=== PATIENT | male | born 1935 | race Caucasian/White ===

== ENCOUNTER 2020-02-07 14:25 | Inpatient (IN) | payer MEDICARE ==
[~2020-02-07] VITALS: Ht 177.8 cm; Wt 85.6 kg
[~2020-02-07 14:25] MED LIST: ASPIR-LOX AD325 MG PO; ASPIRIN 81M81 MG/TA2 PO; CEPHALEXIN500 M1 PO; COREG 6.256.25 MG/TA PO; IMIPRAMINE25 MG PO; LIPITOR 40MG TA40 MG PO; LISINOPRIL AND1 TAB PO; LISINOPRIL/HCTZ1 TAB PO; MONODOX100 PO; MULTIPLE VITAMI1 TA4 PO; NORVASC 10MG10 MG PO; OMNICEF 300MG300 MG PO; PROSCAR PO; RELAFEN500 MG PO; TERAZOSIN HCL PO; TERAZOSIN HYDRO10 MG PO; TOPROL XL 50MG50 MG PO; VITAMIN E1000 U/CAP PO; ZOCOR40 MG PO; ZOCOR80 MG PO; imipramine PO
[2020-02-07 15:36] LABS: BASO % 0.5 % (0.0-2.0); EOS # 0.1 (0.0-0.7); EOS % 2.1 % (0-4.0); GRAN # 3.1 (1.4-6.5); GRAN % 48.7 % (42.2-75.2); HEMOGLOBIN 15.7 g/dl (13.5-18.0); LYMPH # 2.3 (1.2-3.4); LYMPH % 36.7 % (20.0-51.0); MEAN CELL VOLUME 93 fl (80.0-100.0); MEAN CORPUSCULAR HEMOGLOBIN 32 pg (27.0-31.0); MEAN CORPUSCULAR HGB CONC 34 g/dl (33.0-37.0); MEAN PLATELET VOLUME 8.7 fl (7.4-10.4); MONO # 0.7 (0.1-0.6); MONO % 11.7 % (1.7-9.3); PLATELET COUNT 232 K/mm3 (130-400); RED BLOOD COUNT 4.97 M/mm3 (4.20-5.60); REDCELL DISTRIBUTION WIDTH-CV 13.5 % (11.5-14.5)
[2020-02-07 15:38] LABS: PROTHROMBIN TIME 11.3 SECONDS (9.7-12.8)
[2020-02-07 15:42] LABS: ALBUMIN 4.3 gm/dL (3.5-5.0); BILIRUBIN,TOTAL 0.8 mg/dL (0.0-1.0); CALCIUM 9.2 mg/dL (8.4-10.2); CREATININE, serum 0.73 (0.66-1.25); POTASSIUM 4.1 mmol/L (3.4-5.0); TOTAL PROTEIN 7.6 gm/dL (6.4-8.2)
[2020-02-07 15:52] LABS: COLLECTION METHOD CLEAN CATCH
[2020-02-07 16:01] LABS: PH 6 (5-8); SQUAMOUS EPITHELIAL None Seen /hpf; URINE APPEARANCE Clear; URINE BACTERIA None Seen /hpf; URINE BILIRUBIN Negative (NEGATIVE); URINE BLOOD Negative (NEGATIVE); URINE COLOR Colorless; URINE GLUCOSE Negative (NEGATIVE); URINE KETONE Negative (NEGATIVE); URINE LEUKOCYTE ESTERASE Negative (NEGATIVE); URINE NITRATE Negative (NEGATIVE); URINE PROTEIN(semi-quant) Negative (NEGATIVE); URINE RBC 0-2 /hpf; URINE UROBILINOGEN Negative (NEGATIVE)
--- NOTE | 2020-02-07 16:32 | NUR ---
Cloth Shearing Supervisor consulted for the patient. The patient's life partner and caregiver recently. The patient has an open APS case. Shanita from APS contacted this SW regarding the patient. Due to the the caregiver passing away the patient is not safe alone at home. RAZIA visited the patient and brought him to the ED due to APS worker stating the patient is not safe at home alone. The patient to be admitted obs status. SW contacted the patient's son, Abraham and daughter, Jaycob, #[phone], # [phone], respectively. The patient has a third child, Anna Hudson. This SW does not have her contact information. Abraham reports he wants to do what is best for the patient and discussed the options or placement or home to Abraham's house with home health and/or private duty services. The patient may not want SNF placement due to the patient's mother passing away at a prison. A psyciatric consult was ordered. TIP collaborated the above information with the PA and medical SW.
[2020-02-07 18:08] VITALS: BP 154/81; PULSE 86; TEMP 97.9
--- NOTE | 2020-02-07 18:46 | NUR ---
Patient alert, repititve with questions and answers, he appears unsettled and unable to follow through with conversation. Spoke with Dr Lewis, the Psychiatrist about hospitalist consult to her. patient was brought up from ED this afternoon. Patient evaluated, RN decide to place patient on high fall risk, this decision was made because patient seem mildly impulsive and disoriented.
[2020-02-07 19:07] VITALS: BP 130/68; PULSE 69; TEMP 97.7
--- NOTE | 2020-02-07 19:49 | NUR ---
RECEIVED CHANGE OF SHIFT REPORT FROM DAY SHIFT NURSE. PATIENT UP IN ROOM DESPITE REPEATED INSTRUCTION TO BE UP ONLY WITH STAFF ASSISTANCE, BED ALARM ON.
--- NOTE | 2020-02-07 19:53 | NUR ---
PATIENT NOT ORIENTED WHEN ASKED, UNABLE TO ANSWER ADMISSION QUESTIONS RELIABLY AT THIS TIME. NO OUTWARD SIGNS OF TREMORS OBSERVED, DENIES ANXIOUSNESS FEELING, DENIES NAUSEA C/O AT THIS TIME. DENIES C/O PAIN TO ANY PART OF HIS BODY AT THIS TIME.
[2020-02-07 21:37] VITALS: BP 137/73; PULSE 78; TEMP 98.1
[2020-02-07 23:27] VITALS: BP 114/70; PULSE 66; TEMP 97.7
--- NOTE | 2020-02-07 23:59 | NUR ---
PATIENT CONTINUES TO GET OUT OF BED WITHOUT CALLING STAFF, PATIENT CONTINUES TO BE CONFUSED AND RESTLESS, DENIES HALLUCINATIONS BUT STILL INSISTANT TO LEAVING AND REQUIRES REPEATED INSTRUCTIONS TO STAY IN BED DUE TO NIGHT TIME SCHEDULE, ENCOURAGING PATIENT TO SLEEP. SPEECH CLEAR BUT NOT ORIENTED. DENIES CHEST PAIN/SHORTNESS OF BREATH.
[2020-02-08] VITALS (12 sets, daily range): BP systolic 121–163; BP diastolic 64–89; PULSE 62–78; TEMP 97.7–98.4
--- NOTE | 2020-02-08 01:49 | NUR ---
Report received from nurse Frank at this time. Patient is currently resting in bed. ENVIRONMENTAL PROPERTY ASSESSOR sitter is stationed outside of patient's door to facilitate safety. Bed alarm on. Will continue to monitor.
--- NOTE | 2020-02-08 01:55 | NUR ---
REPORT GIVEN TO [place].
--- NOTE | 2020-02-08 06:15 | NUR ---
Patient has been calm and restful from 0200 to 0430 this morning. At this time, he is beginning to grow more restless and anxious. Vital signs are WNL. He is able to be reoriented and follows commands. Bed alarm on and call light in reach.
[2020-02-08 06:35] LABS: BASO % 0.6 % (0.0-2.0); EOS # 0.1 (0.0-0.7); GRAN # 3.2 (1.4-6.5); GRAN % 59.6 % (42.2-75.2); HEMOGLOBIN 14.8 g/dl (13.5-18.0); LYMPH # 1.4 (1.2-3.4); LYMPH % 25.5 % (20.0-51.0); MEAN CELL VOLUME 93 fl (80.0-100.0); MEAN CORPUSCULAR HEMOGLOBIN 32 pg (27.0-31.0); MEAN CORPUSCULAR HGB CONC 34 g/dl (33.0-37.0); MEAN PLATELET VOLUME 8.8 fl (7.4-10.4); MONO # 0.7 (0.1-0.6); MONO % 12.1 % (1.7-9.3); PLATELET COUNT 238 K/mm3 (130-400); RED BLOOD COUNT 4.64 M/mm3 (4.20-5.60); REDCELL DISTRIBUTION WIDTH-CV 13.7 % (11.5-14.5)
[2020-02-08 06:49] LABS: CREATININE, serum 0.83 (0.66-1.25); POTASSIUM 3.8 mmol/L (3.4-5.0)
--- NOTE | 2020-02-08 08:00 | NUR ---
Patient resting in bed at this time. Patient pulled out his INT, catheter intact. Patient is alert but confused, is plesant and easily redirectable, but does not appear to retain information and immediately returns to behaviors. Sitter is outside of room, direct visualization of patient. bed alarm on.
--- NOTE | 2020-02-08 14:47 | NUR ---
Dr. Henderson, psychiatrist, evaluated the patient and states that he does not have the capacity to make his own decisions with regards to his health care and living arrangements. PT/OT worked with the patient and recommend SNF. TIP contacted the patient's son, Abraham, to update and to discuss discharge plan. TIP discussed SNF vs the patient staying with him and family and home health/private duty services. Abraham reports that he was unaware of how severe the patient's dementia was. He states that he kept in touch with the patient, but is not very close with him. Abraham states that he needs to talk to the rest of his family, before making any decisions. TIP attempted to contact the RN Certified Shorthand Reporter and Dr. Zafar's office to inquire if they have any DPOA-HC paperwork. TIP left them a message. TIP to continue to follow.
--- NOTE | 2020-02-08 15:55 | NUR ---
Anita jointer machine operator, at Dr. Zafar's office returned SW's phone call. Anita reports that they do not have a DPOA-HC on file for the patient.
--- NOTE | 2020-02-08 17:31 | NUR ---
Patient currently resting in bed. Patient grew increasingly restless during the shift, and less cooperative with staff. Patient removed second IV, third placed in RAC in one attempt, patient cooperative with placement. Bed alarm on, sitter can directly visualize patient from doorway.
--- NOTE | 2020-02-08 19:45 | NUR ---
Very drowsy--was just given 2 mg of Ativan per detox protocol about an hour ago- will open eyes- when asked if pain pt states no, goes right back to sleep- VSS, does wiggle toes and do hand grasps also then back to sleep-- would not take night meds at this time, Tele on, INT to right AC
[2020-02-09] VITALS (13 sets, daily range): BP systolic 120–158; BP diastolic 67–93; PULSE 60–91; TEMP 97.2–98.4
--- NOTE | 2020-02-09 03:00 | NUR ---
Pt has been sleeping all shift- does not even wake much for vitals and goes back to sleep-- no urine tonight so did wake patient, confused but cooperative-did stand at the bedside with 2 assists and voided 750cc clear yellow urine per urinal. Back to bed with warm blanket and back to sleep. VSS.
--- NOTE | 2020-02-09 05:21 | NUR ---
Quiet night- has been sleeping all night except for about 10-15 minutes around 0300-- on detox protocol , no Ativan given based on scores tonight. VSS, Bed alarm on-close to nsg station.
[2020-02-09 06:38] LABS: ALBUMIN 3.8 gm/dL (3.5-5.0); BILIRUBIN,TOTAL 0.8 mg/dL (0.0-1.0); CALCIUM 9.3 mg/dL (8.4-10.2); CREATININE, serum 0.75 (0.66-1.25); POTASSIUM 3.5 mmol/L (3.4-5.0); TOTAL PROTEIN 6.9 gm/dL (6.4-8.2)
[2020-02-09 06:40] LABS: BASO % 0.4 % (0.0-2.0); EOS # 0.1 (0.0-0.7); EOS % 1.6 % (0-4.0); GRAN # 5.2 (1.4-6.5); GRAN % 68.8 % (42.2-75.2); HEMATOCRIT 44.3 % (42.0-52.0); HEMOGLOBIN 15.2 g/dl (13.5-18.0); LYMPH # 1.3 (1.2-3.4); LYMPH % 17.4 % (20.0-51.0); MEAN CELL VOLUME 92 fl (80.0-100.0); MEAN CORPUSCULAR HEMOGLOBIN 31 pg (27.0-31.0); MEAN CORPUSCULAR HGB CONC 34 g/dl (33.0-37.0); MEAN PLATELET VOLUME 8.8 fl (7.4-10.4); MONO # 0.9 (0.1-0.6); MONO % 11.5 % (1.7-9.3); PLATELET COUNT 233 K/mm3 (130-400); RED BLOOD COUNT 4.84 M/mm3 (4.20-5.60); REDCELL DISTRIBUTION WIDTH-CV 13.5 % (11.5-14.5)
--- NOTE | 2020-02-09 08:17 | NUR ---
Pt awake upon entry, some underlying aggitation, medications given. No C/O pain mihir this time. Shift assessments complete, left Pt in bed, bed in lowest position, alarm on.
--- NOTE | 2020-02-09 09:57 | NUR ---
Build And Deployment Engineer faxed referrals to [facility], [facility], [facility], [facility], [facility], [place], [facility], [facility], and [place].
--- NOTE | 2020-02-09 13:10 | NUR ---
Pt very agitated, atavan administered.
--- NOTE | 2020-02-09 15:45 | NUR ---
TIP attempted to contact the patient's son, Abraham, multiple times. SW left him voicemails. TIP then contacted the patient's daughter, Jaycob. Jaycob reports that Abraham is going to be the person to talk to about d/c plan. She states that Abraham is working and hard to track down. She will call/text him and have him call SW. TIP informed Jaycob that if family is willing to become the patient's guardian, then they will be responsible to get an deputy county attorney and file for guardianship and conservator. Jaycob reports that she does not want to do this. TIP inquired about her sister, Anna, and getting her phone number. Jaycob reports that she is not going to give TIP Castillo's phone number. She states that Anna's children are not well right now. Jaycob reports that Abraham is going to be the person to talk to. She states that she is unsure if Abraham will even want to be the patient's guardian and get an deputy county attorney.
--- NOTE | 2020-02-09 16:07 | NUR ---
Robe, at [facility], reports that they are good to follow the patient. They would need DPOA-HC/Guardianship first. They are a tentative yes.
--- NOTE | 2020-02-09 18:34 | NUR ---
Pt restless in the room, has been aggitated and not oriented during the day, currently Pt napping in the room. IV site pulled by Pt early this afternoon, new site established in left wrist area, mittens applied to prevent Pt from removing the new IV site, mitten covers site. VS have been stable.
--- NOTE | 2020-02-09 20:00 | NUR ---
Assessment complete. Patient is slightly drowsy and confused; He speaks irrelevantly, as if talking to a family member in the room. He moves all extremities, can follow commands, and also knows his birthday. No tremors are noted but he is unable to sit still. No skin issues are noted. Patient wears mitts to facilitate safety. Bed alarm on and BISCUIT PACKER sitter is being utilized. Will continue to monitor.
[2020-02-10] VITALS (11 sets, daily range): BP systolic 134–161; BP diastolic 76–86; PULSE 71–96; TEMP 97.6–98.7
--- NOTE | 2020-02-10 06:14 | NUR ---
Patient is currently resting soundly in bed. He has received 0.5 mg Ativan 3 times during this shift, as he has been scoring 4-5 on CWA scale. Patient in no acute distress at this time. Bed alarm on. Will continue to monitor.
--- NOTE | 2020-02-10 09:48 | NUR ---
Pt sleeping upon entry, easily awakened, some underlying confusion evident, Pt not aggitated at this time. Shift assessments complete.
--- NOTE | 2020-02-10 19:02 | NUR ---
Received report from Brian. Seen patient asleep on bed. Sitter was on outside the room. Bed alarm on. Frankos on his both hands. Will continue to monitor.
--- NOTE | 2020-02-10 20:50 | NUR ---
Patient is asleep. He would respond a little bit if we would call his name but will not open his eyes. Repositioned him as his other leg was dangling on the bed. Patient opened his eyes and then informed him that I will give his night medicines. He said he does not want it. Tried offering water and he did drink. Tried giving one pill first and he was able take it. Tried giving another pill which is his Lipitor but he did not try to swallow it. Removed the pill to prevent patient from aspiration. Will try again later. He is not combative and went back to sleep again.
--- NOTE | 2020-02-10 21:55 | NUR ---
Vital signs taken by the sitter. Patient's eyes were close but he was talking. Offered him if I can give his Lipitor but he said no. Offered him some water and he said he's okay for now. Boost up patient. He went back to sleep after. No Ativan given.
[2020-02-11] VITALS (12 sets, daily range): BP systolic 110–165; BP diastolic 64–86; PULSE 66–84; TEMP 97.4–99.1
--- NOTE | 2020-02-11 03:43 | NUR ---
Patient had incontinent void. Changed patient's diaper. Repositioned patient in bed. He woke up a little bit when we need to turn him while changing. He went back to sleep after.
--- NOTE | 2020-02-11 05:54 | NUR ---
Patient had been asleep most of the night. Ativan given once only this morning. He was awake and wanted to urinate. Helped patient stand with 3 assist. He was able to urinate 500mL. Patient went back to sleep. Sitter still on the outside of the room. Bed alarm on. Still with mittens on both hands.
[2020-02-11 06:13] LABS: HEMATOCRIT 43.9 % (42.0-52.0); HEMOGLOBIN 15.5 g/dl (13.5-18.0); MEAN CELL VOLUME 90 fl (80.0-100.0); MEAN CORPUSCULAR HEMOGLOBIN 32 pg (27.0-31.0); MEAN CORPUSCULAR HGB CONC 35 g/dl (33.0-37.0); MEAN PLATELET VOLUME 8.9 fl (7.4-10.4); PLATELET COUNT 228 K/mm3 (130-400); RED BLOOD COUNT 4.87 M/mm3 (4.20-5.60)
[2020-02-11 06:29] LABS: CALCIUM 9.3 mg/dL (8.4-10.2); CREATININE, serum 0.58 (0.66-1.25); POTASSIUM 3.4 mmol/L (3.4-5.0)
--- NOTE | 2020-02-11 07:40 | NUR ---
PT. SLEEPS WITH DEEP RESPIRATIONS ALTERNATING WITH SHALLOW, RESTLESS MOMENTARILYALTERNATES WITH SLEEP.WHEN AWAKE REQUESTS MITTS REMOVED THEN ASLEEP;SLIGHT THIRST BUT LETHARGIC.NO PAIN.
--- NOTE | 2020-02-11 08:24 | NUR ---
Bedisde shift report received. pt appears asleep and snoring. moving legs on bed. 1:1 sitter present. bed alarm on. on RA. no s/s distress.
--- NOTE | 2020-02-11 09:30 | NUR ---
899-PT. RESTLESS AND BUMPING LEGS AGAIST LOWER BED RAILS;SEIZURE PADS FOR SAFETY FROM INJURY;PT. C/O PAIN WHEN TURNING OR MOVING RUE;PT. SAYS BACK PAIN THEN TO SLEEP ONCE REPOSITIONED TO R SIDE. 929- PT. AWAKENS AND SAYS HE DOES NOT FEEL GOOD;LITTLE HUNGRY,THRISTY; P.T. TO SEE PT. BUT NO THERAPY PT. TOO SLEEPY;LESS RESTLESS SITTING UP IN BED.FALLS TO SLEEP.
--- NOTE | 2020-02-11 10:27 | NUR ---
MORNING meds given. pt sleepy but answered questions appropriately. oriented to person and in hospital but thinks in [place]. not oriented to time. currently eating breakfast with assisatnce from FLOW WORKER. took meds cruched in pudding due to drowsyness. bed alarm on
--- NOTE | 2020-02-11 11:20 | NUR ---
1000- FED AND FLUIDS TAKEN MAX FOR ADMITTING SUPERVISOR; THEN AGREEABLE TO HAVE BATH IN BED;MITTS RELEASED AND REAPPLIED; REPOSITIONED TO L SIDE;XRAYS OF R SHOULDER DONE AND REPOSITIONED. 1125- S.T. TO WORK W/PT.
--- NOTE | 2020-02-11 11:51 | NUR ---
attempted to call listed next of kin for consent for lumbar pucture for pt and no answer on phone. call back number left for family
--- NOTE | 2020-02-11 12:21 | NUR ---
1200- AWAKE AND WANTING MITTS OFF-RN APPROVED AND PT. REPEATEDLY WANTING "PANTS TO LEAVE";RELESTLESS BUT MANAGEABLE IN BED.
--- NOTE | 2020-02-11 13:27 | NUR ---
1230-pt. grabbed IV quickly; RN informed; pt. asking for a couple of beers repeatedly and wanting his shoes and clothes to go home. Did eat full liquids and no lower teeth to chew general foods; drinks w/o choking w/straw. Restless and trying to get out of bed but pain in RUE and back with movement; Wanting to pay anyone to take him home for beer. Denies in hospital and c/o R abd. pain for short time;wanting OOB to void and does not void w/urinal placement. 1330- O.T. assisted pt. to BS to dangle w/mod assist but pt. to weak to sit up and repositioned in bed.R.N. notified of pt. needing pain med and very restless.1345- Pt. trying to get OOB and falls back into bed,rests for short time.1350- recalled for pt. not able to relax,very restless. Wheezing respirations.1400-Intermittent restlessness.
--- NOTE | 2020-02-11 14:06 | NUR ---
On 02/09 Icer Machine Operator attempted to contacted the patient's son, Abraham regarding guardianship for the patient, left message. This day SW attempted to contact the patient's son, Abraham and left message informing him that there is a legal matter pending for the patient and he needed to contact the patient as soon as possible. SW contacted the patient's daughterHaja regarding the above information, left message.
--- NOTE | 2020-02-11 14:10 | NUR ---
1410-notified RN of pts' temp 99.1 A.
--- NOTE | 2020-02-11 14:13 | NUR ---
FAMILY Abraham and Haja called in regards to consent for LP again this shift with call proceeding to voicemail all times. No call back
--- NOTE | 2020-02-11 14:45 | NUR ---
1420-RN at -restart IV and for Tylenol for pts' pain; not able to move RUE higher than chest level; Pt. fed pudding and sips of water; says "No more" 1445- resting after mitts on and repositioned semi sitting.
--- NOTE | 2020-02-11 15:35 | NUR ---
IV infiltrate treated per RN request w/WMP reduced swelling;Pt restless at times;tries to bite off mitts-tactile cues to prevent... asleep intermittently.
--- NOTE | 2020-02-11 16:13 | NUR ---
ATTEMPTED TO CALL FAMILY FOR LP CONSENT AGAIN BUT NO CALL BACK.
--- NOTE | 2020-02-11 16:40 | NUR ---
REPORT GIVEN TO ONCOMING NURSE KEN. MONTGOMERY AT BEDSIDE.
--- NOTE | 2020-02-11 16:42 | NUR ---
Printed Forms Proofreader faxed udpates to [facility] and to [place].
--- NOTE | 2020-02-11 18:12 | NUR ---
1700- Pt. is restless and wanting OOB. Relaxes for short periods of time; wanting OOB; Oncoming R.N. explained to that pt. pulled out IV and last one infiltrated. Pt. thirsty and drinks fluids well/no choking. 1730- pt. eats little better but says full w/40% of meal. Very restless after supper fed max assist. Bilateral mitts intact. rn informed of pt. urge to void but not able to from a.m. but at 1825 voided nora 160ml max to place urinal.
--- NOTE | 2020-02-11 19:25 | NUR ---
Received report from Brian. Seen patient drowsy in bed. He was moving his legs occasionally. Patient has no IV access as the sitter said that patient pulled it awhile ago. Inserted an IV site on his left forearm G22. Infused NS at 75ml/hr. Night meds given early as patient is slightly awake and wants to drink some water.
--- NOTE | 2020-02-11 22:00 | NUR ---
Patient complains of headache and pain on his right shoulder. Tylenol given.
--- NOTE | 2020-02-11 23:43 | NUR ---
Patient starts to get agitated. He wants to remove his mittens and get out of bed. Would re-orient patient and lead him back to lie down in bed. Ativan given.
[2020-02-12] VITALS (10 sets, daily range): BP systolic 116–154; BP diastolic 66–80; PULSE 65–96; TEMP 97.4–98.4
--- NOTE | 2020-02-12 04:15 | NUR ---
Patient is awake and starting to become restless. He also complains of neck pain. Ativan and Tylenol given. Repositioned patient.
[2020-02-12 06:07] LABS: CALCIUM 8.9 mg/dL (8.4-10.2); CREATININE, serum 0.61 (0.66-1.25); MAGNESIUM 1.9 mg/dL (1.6-2.3); POTASSIUM 3.5 mmol/L (3.4-5.0)
--- NOTE | 2020-02-12 06:23 | NUR ---
Patient currently asleep. Was able to give 2 doses of Ativan throughout the shift. Bed alarm on.
--- NOTE | 2020-02-12 07:38 | NUR ---
Bedside shift report recevied. PT resting in bed. moving legs towards off bed. eyes closed. repositioned. confused conversation with eyes closed. bed alarm on and sitter at bedside.
--- NOTE | 2020-02-12 09:18 | NUR ---
Morning meds given crushed in pudding. pt slightly drowsy and oriented to person only. ate breakfast with 1 assist. fidgets. confused. IVF infusing as ordered. had an episode on incontinence and BM per sitter. VSS. bed alarm on
--- NOTE | 2020-02-12 13:59 | NUR ---
TIP faxed updates from 02/11/2020-02/12/[address] [facility], and Tabith[facility] as directed.
--- NOTE | 2020-02-12 14:03 | NUR ---
PT VERY RESTLESS and anxious. would not stay still enough for vitals. wanting to walk out door and out of the [place]. unable to re-orient. bed alarm on.
--- NOTE | 2020-02-12 20:00 | NUR ---
Report received, assumed care for community development planner. Assessment complete. VS stable. A&O to self-very confused conversation but pleasent. NS@75mls/hr to left forearm IV-no s/s of infiltration noted. Denies pain/nausea/shortness of breath. Currently scoring 0 on withdrawl scale. HS meds given crushed in apple sauce. Tolerated well. Plan of care discussed for this shift to include HS meds/calling for needs. Sitter at bedside/bed alarm on. Will monitor.
--- NOTE | 2020-02-12 22:25 | NUR ---
Originally had scored 2 at 2200 detox evaluation. Currently is very confused and hallucinating that there are people in his room talking to him. Blood pressure is elevated and anxiety is high. Rescored on detox protocol 5 for blood pressure, anxiety and insomnia. Will continue to monitor.
[2020-02-13] VITALS (12 sets, daily range): BP systolic 116–162; BP diastolic 60–91; PULSE 63–88; TEMP 97.3–98.9
--- NOTE | 2020-02-13 05:00 | NUR ---
Very restless and anxious. Trying to climb out of bed stating there are strange men in the room trying to steal his belongings. Detox protocol rescored-scoring 5 due to elevated blood pressure/anxiety/hallucinations. Ativan 0.5mg given per dr order. Sitter at bedside/bed alarm on. Will monitor.
--- NOTE | 2020-02-13 06:18 | NUR ---
Remained very confused this shift but mostly pleasent. Received two doses of Ativan 0.5mg per dr order for detox scores of 5 due to vitals, anxiety, hallucinations and pulse. Denied pain/nausea/shortness of breath. Has been incontinent of urine several times this shift. Denies needs. Call light in reach/bed alarm on/sitter at bedside. Will monitor.
--- NOTE | 2020-02-13 07:23 | NUR ---
Bedside shift report received. pt fidgeting in bed with eyes closed. sitter at bedside. incontinent of urine and changed shortly after. became aggressive during jean care but was able to be redirected. now resting in bed. bed alarm on.
[2020-02-13 08:04] LABS: CREATININE, serum 0.65 (0.66-1.25); POTASSIUM 3.6 mmol/L (3.4-5.0)
--- NOTE | 2020-02-13 09:41 | NUR ---
MORNING MEDS given. pt awake but drowsy. oriented to person only. thinks he is at home. fidgets with equipment and IVF thus mitts on. incontinent and changed, able to follow simple commands. bed alarm on
--- NOTE | 2020-02-13 12:13 | NUR ---
PT WAS GIVEN A BED BATH by sitter and sat up in chair for a while. confused but compliant with care. worked with PT but apparently refused to stand with them citing rt shoulder and back pain. fluids offered and accepted. awaiting lunch
--- NOTE | 2020-02-13 16:36 | NUR ---
PT OFF MITTS from 1100 to after lunch 1300. He was able to sit up and feed himself lunch. remains confused and oriented to person only. mild to moderate anxiety. multiple incontinent episodes with some urinal use. SOFIA Tabby ambulated pt to bathrom with 1/CGA, GB and walker and back to chair. back to bed for nap after lunch. pain controlled per FLACC scale
--- NOTE | 2020-02-13 20:00 | NUR ---
Assessment complete. Patient is alert and partially oriented; He is able to state his name, birthday, and the city he is in but does not know the current year or president. He has no complaints of pain. He is pleasant at this time with no signs of agitation; BP 139/77 and HR 81. Bed alarm on and CORPORATE ANALYST sitter in use. NS running at 75 into left forearm IV. Will continue to monitor.
[2020-02-14] VITALS (9 sets, daily range): BP systolic 122–151; BP diastolic 72–85; PULSE 72–80; TEMP 97.9–98.5
--- NOTE | 2020-02-14 05:25 | NUR ---
Patient currently resting in bed. He moves very often but is calm and pleasant. He has been incontinent of urine twice during the shift and has used the urinal once. He complains of pain in his right shoulder when it is moved. Fluids infusing into right wrist IV. Bed alarm on.
--- NOTE | 2020-02-14 09:08 | NUR ---
Assessment completed, patient is alert but remains disoriented, vital signs stable, CIWA scores range from 3-6 but overall is improved, denies pain and does not appear to be in any acute pain or discomfort, heart RRR/distal pulses are palpable, lungs CTA/ no resp.difficulty, replacing potassium per protocol, patient is eating and drinking with encouragement, IVF continue, patient up with assistance and is still unsteady on his feet, bed alarm set, will continue to monitor closely while Case managmeent/ SW work on discharge planning
--- NOTE | 2020-02-14 16:36 | NUR ---
Carpentry Instructor contacted patient's children, Jaycob and Abraham and left urgent messages with no response. SW collaborated with Jacinda Otero, Risk Management who also attempted contact with Jaycob and Abraham. Jacinda contacted Daryl Andrade, Tow Boat Captain about pursuing emergency guardianship as patient's three children are unable to be contacted and will not return calls/messages. Daryl requested Guardianship Questionnaire be completed and returned to Kristofer Rose, Tow Boat Captain. TIP completed Guardianship Questionnaire and scanned copy to Daryl Curry and Kristofer Rose, with Jacinda copied. TIP also provided Report and Exam to Hospitalist to be completed. TIP faxed updates to [place] [facility]. TIP will continue to follow.
--- NOTE | 2020-02-14 18:46 | NUR ---
Bedside shift report received from NATHANAEL Linares. Patient is currently resting in bed with fluids infusing to right wrist IV.
--- NOTE | 2020-02-14 20:00 | NUR ---
Assessment complete. Patient is alert but not oriented; He is constantly moving. He has no complaints of pain, except his right shoulder when turning. He has been incontinent of urine and a complete bed change/partial bed bath is performed. At beginning of shift, patient pulled out his right wrist IV; New IV site is initiated in right a/c. Bed alarm on and patient is being closely monitored.
[2020-02-15] VITALS (10 sets, daily range): BP systolic 99–146; BP diastolic 58–87; PULSE 54–90; TEMP 97.5–98.9
--- NOTE | 2020-02-15 03:12 | NUR ---
At this time, patient's abdomen and scrotal area appear distended. Fluids are currently infusing at 75 ml/hr. Patient has had adequate urine output throughout the night but a bladder scan is performed, resulting with >749 ml. 5 minutes after bladder scan, "patient drenched" (per CRANE OPERATOR CAB report) his brief; In addition, he is assisted to the urinal and voids 250 ml. Post void bladder scan is performed and results >755 ml. ESTEPHANIE Waters is notified and personally comes to floor to assess patient. She orders the insertion of a hart; Sterile technique is utilized during insertion of hart; A straight cath catheter is needed to first insert into urethra, as patient has adhesions in urethra which block the insertion of a 16 sri lankan hart catheter. The straight catheter drains 400 ml of urine and now a 16 sri lankan hart is able to be inserted; A total of 1050 mls medium-yellow, clear urine is drained. Abdomen and scrotal area still appear edematous but are less so after urine is removed. Per order, IV fluids are discontinued at this time. Patient received a dose of 0.5 mg IV Ativan 30 minutes prior to hart inseriton, due to CIWA protocal, and tolerated procedure well. He did grimace when SUPPLY ASSISTANT palpated the right side of his abdomen but is too drowsy and disoriented to state a pain level. Will continue to monitor.
[2020-02-15 04:06] LABS: COLLECTION METHOD CLEAN CATCH
[2020-02-15 04:12] LABS: MUCOUS Present /lpf; PH 8 (5-8); SQUAMOUS EPITHELIAL None Seen /hpf; URINE APPEARANCE Clear; URINE BACTERIA None Seen /hpf; URINE BILIRUBIN Negative (NEGATIVE); URINE BLOOD Negative (NEGATIVE); URINE COLOR Straw; URINE GLUCOSE Negative (NEGATIVE); URINE KETONE Negative (NEGATIVE); URINE LEUKOCYTE ESTERASE Negative (NEGATIVE); URINE NITRATE Negative (NEGATIVE); URINE PROTEIN(semi-quant) Negative (NEGATIVE); URINE RBC None Seen /hpf; URINE UROBILINOGEN Negative (NEGATIVE)
--- NOTE | 2020-02-15 14:44 | NUR ---
Cad Engineer returned Report and Examination, which was completed by Dr. Dos Santos, to Kristofer Rose, Seedling Sorter.
--- NOTE | 2020-02-15 15:30 | NUR ---
Cementer Hand spoke with Kristofer Rose, Manager Business Planning who advised he has made contact with patient's daughter, Haja. Kristofer advised Haja would not disclose contact information for patient's other daughter, Anna or patient's two adult siblings. Kristofer advised that they did confirm that patient owns the trailer he lived in.
--- NOTE | 2020-02-15 20:00 | NUR ---
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 Assessment complete. Alert but conversation is very confused. Denies pain/nausea/shortness of breath. VS stable. Very anxious at this time-trying to pull out hart cath with mits on, climbing over bedrails, trying to hit staff. Ativan given per dr order. HS meds given. Denies needs/complaints. Call light in reach/bed alarm on. Will monitor.
[2020-02-16] VITALS (10 sets, daily range): BP systolic 97–128; BP diastolic 52–77; PULSE 72–88; TEMP 97.6–98.3
--- NOTE | 2020-02-16 | NUR ---
Resting eyes closed. No s/s of pain/discomfort noted. Call light in reach/bed alarm on. Will monitor.
--- NOTE | 2020-02-16 05:11 | NUR ---
Rested well this shift. Was anxious/agitated at the beginning of the shift. Denied nausea/shortness of breath/pain. Alert but very confused. Received one dose of IV ativan per dr order with good results. VS remained stable. Aguilera cath with light pink urine. INT to right forearm flushes without difficulty. Call light in reach/bed alarm on. Will monitor.
--- NOTE | 2020-02-16 09:16 | NUR ---
PATIENT ASSESSMENT COMPLETED. HE IS SITTING UP IN THE BED EATING BREAKFAST. MITTS HAVE BEEN REMOVED FOR THIS. BED ALARM REMAINS ON.
--- NOTE | 2020-02-16 12:40 | NUR ---
PATIENT IS VERY AGGITATED IN THE BED. I HAVE NEW ORDERS FROM TO GIVEN HALDOL 1MG IVP NOW.
--- NOTE | 2020-02-16 14:03 | NUR ---
PATIENT AMBULATES IN THE HALLWAY GREATER THAN 500 FEET. HE IS BACK TO BED AND IS NOW ACTING DROWSY. BED ALARM ON.
--- NOTE | 2020-02-16 14:10 | NUR ---
PATIENT NOW RESTING IN BED. CALM
--- NOTE | 2020-02-16 15:08 | NUR ---
PATIENT IS BECOMING AGGITATED IN BED. PRN SEREQUIL GIVEN AT THIS TIME PO
--- NOTE | 2020-02-16 16:12 | NUR ---
Kristofer Rose, Manager Process Excellence emailed draft of Temporary Guardianship documents to Rn Wound for review. TIP reviewed and responsed to email. Kristofre advised it will be filed. TIP faxed clinical updates to [facility]. TIP spoke with Masha at [facility] who advised it looks like they can clinically accept but would need Guardianship established before officially accepting.
--- NOTE | 2020-02-16 18:05 | NUR ---
PATIENT PULLED OUT HIS WEINSTEIN CATHETER. HE REPORTS THAT IT DIDN'T HURT BULB IS INTACT WHEN I EVALUATE IT. I HAVE NOTIFIED DR. WEI OF THIS NEW ORDERS RECEIVED
--- NOTE | 2020-02-16 19:15 | NUR ---
Very agitated at this time-yelling/trying to climb out of bed/swatting at staff and picking at IV site. Haldol given per dr scott. Will monitor.
--- NOTE | 2020-02-16 23:07 | NUR ---
Patient laying in bed upon enter the room. Patient appears confused and very agitated. Moves all extremities and trying to get out of bed. PRN Haldol given at 19:13 pm. Scheduled meds given per order. Patient took the medicine without difficulty. Right wrist IV site has no s/s of complication. Flushed with NS without difficulty. Call light within reach. Will continue to monitor.
[2020-02-17 03:58] VITALS: BP 103/59; PULSE 72; TEMP 98.1
--- NOTE | 2020-02-17 04:30 | NUR ---
Patient hasn't been urinating over the night. Bladder scan done and urine residual was 520ml. Called Dr. Dos Santos and received order to place hart catheter. Hart catheter placed by Nancie Arana with urine return of 500ml in the bag. Hart catheter draining clear yellow urine. Patient was agitated after the procedure and attemped to pull out hart catheter. PRN Haldol given at 04:04 am per APR. Will continue to monitor.
[2020-02-17 08:17] VITALS: BP 145/77; PULSE 81; TEMP 97.5
--- NOTE | 2020-02-17 10:00 | NUR ---
Patient laying in bed, nursing staff in the room reorienting the patient and informing that he has a hart catheter that he can urinate in. Patient is A&Ox2. Patient is becoming agitated when not allowed to get up and move around. IV CDI, russ bandage covering. VSS. Denies pain and discomfort. Bed alarm on, door open and call light within reach. Fall precautions in place.
[2020-02-17 12:00] VITALS: BP 124/65; PULSE 69; TEMP 97.9
[2020-02-17 14:12] VITALS: BP 124/65; PULSE 69; TEMP 97.9
[2020-02-17 16:00] VITALS: BP 139/80; PULSE 88; TEMP 98.1
--- NOTE | 2020-02-17 16:19 | NUR ---
Pantomimist contacted Kristofer Rose, [employer] Ax Developer who advised that Guardianship was filed yesterday, but he would not have a physical copy of the document until Friday. TIP and RNConcha looked in patient's wallet to search for bank information. TIP obtained a contact list in patient's wallet, including a phone number for his bank and provided this to Kristofer Rose, employment law attorney. Patient pulled his hart catheter and is wearing mitts. TIP faxed referrals to [facility] placements including [facility], [facility], [facility], [place] [facility], and [facility]. TIP received a phone call from [facility] who declined referral as they cannot accept patient's with alcohol detox as they do not have addiction counselors on staff. TIP contacted [facility] and was advised they would not review referral until Friday. TIP attempted to follow up with [facility] but could not reach anyone through the main phone number. TIP contacted Robe at [facility] who advised that if patient has required a sitter or if patient is requiring mitts, they cannot accept. Robe advised they would also need to have Guardianship documents before the would consider an admit. TIP spoke with Masha at [facility] who advised before they can accept they would need Gurdianship documents and would need more information about patient's financial situation. TIP will continue to follow.
--- NOTE | 2020-02-17 16:30 | NUR ---
Paper Bag Inspector also faxed referral to [facility].
--- NOTE | 2020-02-17 18:10 | NUR ---
Patient has been agitated throughout the shift and nursing staff in the patients room most of the shift reorienting the patient. Patient has tried to take his hart out, biting mitts and was combative with staff. Doctor notified. Patient is alert and confused. VSS. IV CDI, russ bandage covering. Hart clear yellow. Nursing staff assisting with meals. Patient has tried to have a BM several times throughout the shift. Call light within reach. Bed alarm on and door open
[2020-02-17 19:32] VITALS: BP 117/66; PULSE 80; TEMP 98.2
--- NOTE | 2020-02-17 22:47 | NUR ---
Patient alert and oriented to person only. Patient appears very agitated. Trying to get out of bed and also trying to pull out his Aguilera catheter. PRN Ativan given at 20:16 pm. Scheduled meds given per APR at this time. Patient took medications without difficulty. Right wrist IV site has no s/s of complications. Flushed with NS without difficulty. Aguilera catheter patent and in place, draining clear yellow urine. Call light within reach. Fall precaution maintained.
[2020-02-18 00:26] VITALS: BP 114/67; PULSE 77; TEMP 98.1
[2020-02-18 03:25] VITALS: BP 119/65; PULSE 73; TEMP 97.9
--- NOTE | 2020-02-18 04:51 | NUR ---
Patient slept well after had PRN Ativan at start of shift. Patient woke up around 03:30 am. Patient starts to get agitate and combatitive. Trying to pull out his hart, yelling at staff, and kicking staff with his legs. PRN Ativan given at 04:47 am for agitation. Call light within reach. Will continue to monitor.
[2020-02-18 08:00] VITALS: BP 106/60; PULSE 79; TEMP 97.3
[2020-02-18 08:29] LABS: BASO % 0.4 % (0.0-2.0); EOS # 0.2 (0.0-0.7); EOS % 2.8 % (0-4.0); GRAN # 5.5 (1.4-6.5); GRAN % 65.3 % (42.2-75.2); HEMATOCRIT 44.7 % (42.0-52.0); HEMOGLOBIN 15.3 g/dl (13.5-18.0); LYMPH # 1.7 (1.2-3.4); LYMPH % 19.9 % (20.0-51.0); MEAN CELL VOLUME 92 fl (80.0-100.0); MEAN CORPUSCULAR HEMOGLOBIN 32 pg (27.0-31.0); MEAN CORPUSCULAR HGB CONC 34 g/dl (33.0-37.0); MEAN PLATELET VOLUME 8.8 fl (7.4-10.4); MONO # 0.9 (0.1-0.6); MONO % 11.2 % (1.7-9.3); PLATELET COUNT 446 K/mm3 (130-400); RED BLOOD COUNT 4.85 M/mm3 (4.20-5.60); REDCELL DISTRIBUTION WIDTH-CV 12.6 % (11.5-14.5)
[2020-02-18 08:38] LABS: ALBUMIN 4.1 gm/dL (3.5-5.0); BILIRUBIN,TOTAL 0.7 mg/dL (0.0-1.0); CALCIUM 9.7 mg/dL (8.4-10.2); CREATININE, serum 0.86 (0.66-1.25); POTASSIUM 4.3 mmol/L (3.4-5.0); TOTAL PROTEIN 7.7 gm/dL (6.4-8.2)
[2020-02-18 16:22] VITALS: BP 117/56; PULSE 79; TEMP 98
[2020-02-18 20:08] VITALS: BP 116/62; PULSE 74; TEMP 98.1
--- NOTE | 2020-02-18 23:19 | NUR ---
Patient laying in bed upon enter the room. Patient appears slightly confused. Oriented to person only. Patient denies any pain or discomfort. Breathing even and unlabored. Aguilera catheter patent and in place, draing clear yellow urine. Right wrist IV has no s/s of complications. Scheduled medications crushed and mixed in applesauce. Patient took medications without difficulty. Call light within reach. Fall precaution maintained.
[2020-02-19 00:51] VITALS: BP 106/66; PULSE 62; TEMP 98.3
[2020-02-19 04:32] VITALS: BP 108/55; PULSE 65; TEMP 98.1
--- NOTE | 2020-02-19 06:01 | NUR ---
Patient slept through the night. No acute distress or agitation noted. Call light within reach.
--- NOTE | 2020-02-19 07:23 | NUR ---
Patient laying in bed, was trying to get out of bed. A&Ox2 and confused. Nurse reoriented the patient. VSS. IV CDI, russ bandage covering. Aguilera, clear yellow urine. Denies pain and reports some discomfort from laying in bed. Call light within reach, mitts on. Bed alarm on, door open
[2020-02-19 08:12] VITALS: BP 121/69; PULSE 67; TEMP 97.9
[2020-02-19 12:18] VITALS: BP 111/81; PULSE 78; TEMP 97.7
[2020-02-19 16:00] VITALS: BP 107/59; PULSE 80; TEMP 97.8
--- NOTE | 2020-02-19 17:28 | NUR ---
Patient resting in bed. Was agitated in the beginning of shift and nursing staff frequently reorienting the patient. Patient sat up in the recliner and tolerated well. Patient assisted with eating and repositioning in bed. Aguilera to dependent drainage, clear yellow. Call light within reach. Bed alarm on and door left open
--- NOTE | 2020-02-19 18:30 | NUR ---
Bedside shift report received from Concha. Patient is currently in bed, drowsy and restless. Aguilera is draining dark yellow urine. Patient is not being impulsive at this time. Bed alarm on.
[2020-02-19 18:52] VITALS: BP 124/71; PULSE 85; TEMP 98.2
--- NOTE | 2020-02-19 20:00 | NUR ---
Assessment complete. Patient is resting in bed but arouses easily to voice. He is oriented to self but not time, place or situation. No edema is present and patient has no complaints of pain. Aguilera is draining clear, dark yellow urine. PO meds are administered crushed with applesauce and patient is encourage to drink regular ice water, which he tolerates well. Patient is being closely monitored with bed alarm set.
[2020-02-20 00:15] VITALS: BP 117/70; PULSE 78; TEMP 100.5
[2020-02-20 05:05] VITALS: BP 119/71; PULSE 79; TEMP 99.5
--- NOTE | 2020-02-20 08:00 | NUR ---
Patient laying in bed, A&Ox2 and confused. VSS IV CDI. Mitts on hands. Aguilera dependent drainage. Reporting pain in back when being repositioned in bed. Nursing staff reorienting patient as needed. Call light within reach. Bed alarm on and door left open
[2020-02-20 08:18] VITALS: BP 139/76; PULSE 92; TEMP 98
[2020-02-20 08:24] LABS: BASO % 0.3 % (0.0-2.0); EOS # 0.1 (0.0-0.7); EOS % 0.6 % (0-4.0); GRAN # 6.8 (1.4-6.5); GRAN % 69.5 % (42.2-75.2); HEMATOCRIT 43.4 % (42.0-52.0); HEMOGLOBIN 14.9 g/dl (13.5-18.0); LYMPH # 1.5 (1.2-3.4); MEAN CELL VOLUME 91 fl (80.0-100.0); MEAN CORPUSCULAR HEMOGLOBIN 31 pg (27.0-31.0); MEAN CORPUSCULAR HGB CONC 34 g/dl (33.0-37.0); MEAN PLATELET VOLUME 8.5 fl (7.4-10.4); MONO # 1.4 (0.1-0.6); MONO % 14.3 % (1.7-9.3); PLATELET COUNT 513 K/mm3 (130-400); RED BLOOD COUNT 4.79 M/mm3 (4.20-5.60); REDCELL DISTRIBUTION WIDTH-CV 12.4 % (11.5-14.5)
[2020-02-20 08:32] LABS: CALCIUM 9.5 mg/dL (8.4-10.2); CREATININE, serum 0.91 (0.66-1.25); POTASSIUM 4.2 mmol/L (3.4-5.0)
[2020-02-20 11:22] LABS: COLLECTION METHOD CLEAN CATCH
[2020-02-20 11:42] LABS: MUCOUS Present /lpf; PH 5 (5-8); SQUAMOUS EPITHELIAL None Seen /hpf; URINE APPEARANCE Cloudy; URINE BACTERIA Rare /hpf; URINE BILIRUBIN Negative (NEGATIVE); URINE BLOOD 3+ (NEGATIVE); URINE COLOR Amber; URINE GLUCOSE Negative (NEGATIVE); URINE KETONE Negative (NEGATIVE); URINE LEUKOCYTE ESTERASE 2+ (NEGATIVE); URINE NITRATE Negative (NEGATIVE); URINE PROTEIN(semi-quant) 2+ (NEGATIVE); URINE RBC >50 /hpf
[2020-02-20 12:00] VITALS: BP 137/76; PULSE 81; TEMP 99.6
--- NOTE | 2020-02-20 12:00 | NUR ---
Aguilera removed, pericare provided before and after removal. Catheter tip intact, 12ml water removed from balloon, patient tolerated well. Brief placed on patient. Patient repositioned for comfort. Call light within reach
--- NOTE | 2020-02-20 16:00 | NUR ---
Bladder scanned the patient and 150ml in bladder. Patient brief still dry. Patient reposited for comfort. Call light within reach
[2020-02-20 16:33] VITALS: BP 130/71; PULSE 86; TEMP 99.1
--- NOTE | 2020-02-20 17:42 | NUR ---
Patient had an uneventful day. Spent most of the shift resting in bed. Aguilera removed, patient has not voided since removal and bladder scan showed 150ml urine in bladder. Patient has had compliants of pain in lower back and legs, lidocain patch on left lower back. Patients HOB lowered to help with the pain in back. Mitts on hands. Patient repositioned for comfort and assisted with meals. Call light within reach. Bed alarm on and door open
--- NOTE | 2020-02-20 18:17 | NUR ---
Bladder scanned the patient and 270ml urine in bladder. EASTON Chauhan notified and instructed to rescan in 1 hr and then update.
[2020-02-20 20:00] VITALS: BP 110/66; PULSE 81; TEMP 99.6
--- NOTE | 2020-02-20 20:00 | NUR ---
Assessment complete. Patient is resting in bed and arouses to speech. He is slightly drowsy and confused. Patient is encouraged to void in urinal and refuses; Bladder scan is completed and results 236 mls. HR is normal and regular, lungs are clear/diminished. Abdomen is distended and soft, especially on the right side. Mons pubis area appears distended as well. No extremity edema is noted. Patient is tolerating breathing RA well and satting 94%. Patient complains of back pain and has low grade fever - Tylenol administered. Will continue to monitor closely. Bed alarm on.
--- NOTE | 2020-02-21 00:08 | NUR ---
Patient is encouraged to void in urinal at this time. Patient does not void; Second bladder scan of the shift is performed and results 309 mls. EASTON Chauhan notified; Additional nursing order states to bladder scan Q6H and straight cath if result is greater than 450 mls. She also ordered a urology consult to be called in the am. Will continue to monitor.
[2020-02-21 04:00] VITALS: BP 104/57; PULSE 72; TEMP 97.8
--- NOTE | 2020-02-21 06:00 | NUR ---
Bladder scan completed at this time. Result is 399 ml. Does not require straight cath per doctor's order. Will continue to monitor.
[2020-02-21 07:28] LABS: HEMATOCRIT 42.2 % (42.0-52.0); HEMOGLOBIN 14.3 g/dl (13.5-18.0); MEAN CELL VOLUME 93 fl (80.0-100.0); MEAN CORPUSCULAR HEMOGLOBIN 31 pg (27.0-31.0); MEAN CORPUSCULAR HGB CONC 34 g/dl (33.0-37.0); MEAN PLATELET VOLUME 8.8 fl (7.4-10.4); PLATELET COUNT 512 K/mm3 (130-400); RED BLOOD COUNT 4.55 M/mm3 (4.20-5.60); REDCELL DISTRIBUTION WIDTH-CV 12.6 % (11.5-14.5)
[2020-02-21 07:39] LABS: CALCIUM 9.4 mg/dL (8.4-10.2); CREATININE, serum 1.23 (0.66-1.25); POTASSIUM 3.9 mmol/L (3.4-5.0)
[2020-02-21 08:36] VITALS: BP 103/58; PULSE 77; TEMP 97.3
[2020-02-21 08:38] LABS: BAND 8 % (0-10); LYMPHOCYTE 16 % (20.0-51.0); NEUTROPHILS 66 % (42.0-75.2)
[2020-02-21 08:39] LABS: PLATELET ESTIMATE INCREASED (NORMAL)
[2020-02-21 12:30] VITALS: BP 105/60; PULSE 79; TEMP 97.1
[2020-02-21 16:27] VITALS: BP 118/65; PULSE 81; TEMP 98.4
--- NOTE | 2020-02-21 16:52 | NUR ---
Gambreler faxed referral to [facility]. TIP contacted Enedelia at [facility] who advised they could likely take once Guardianship is established. Enedelia advised they are pretty full this week but will have discharges. TIP contacted Page at [facility] who advised they are currently full. TIP contacted [facility] [place] and was advised they currently have a wait list but should have discharges this week. TIP attempted to contact [facility] but could not reach any staff members and could not leave a message. TIP left a message for Giselle at [facility]. TIP received an email from Kristofer Rose mergers and acquisitions attorney and there was a clerical issue with what was filed last week. Patient should have temporary guardianship filed for today. TIP will continue to follow.
--- NOTE | 2020-02-21 20:00 | NUR ---
Assessment complete. Patient is resting in bed and arouses to voice. He is only oriented to self. He complains of right lower back/hip pain when he is repositioned in bed. No edema is present. Indwelling hart is draining dark yellow urine. Fluids infusing at 75 ml/hr into right forearm IV. Patient is breathing RA and is tolerating well. Lung sounds are clear; HR is irregular with normal rate. Bed alarm is set.
[2020-02-21 20:17] VITALS: BP 133/56; PULSE 76; TEMP 98.4
[2020-02-22 00:32] VITALS: BP 136/72; PULSE 55; TEMP 98.3
[2020-02-22 04:28] VITALS: BP 128/62; PULSE 75; TEMP 98.6
--- NOTE | 2020-02-22 05:08 | NUR ---
Patient has slept throughout the majority of the night. He has remained very confused and is attempting to get out of bed this morning to urinate, despite being oriented to his catheter. Fluids infusing at 75 ml/hr. Bed alarm set. Will continue to monitor.
[2020-02-22 10:38] VITALS: BP 123/66; PULSE 72; TEMP 97.9
--- NOTE | 2020-02-22 16:57 | NUR ---
Radiologic Technology Teacher collaborated with Kristofer Rose, Solar Lab Technician who advised Guardianship has been filed and is still pending. TIP spoke Page at [facility] and faxed updates. TIP also spoke with Giselle at [facility] who advised she would review updates and have their physician review. TIP spoke with Sharlene at [facility] who advised they would look at accepting once guardianship is established. Each facility would need Guardianship prior to accepting. TPI will continue to follow.
[2020-02-22 17:50] VITALS: BP 137/73; PULSE 82; TEMP 98.2
--- NOTE | 2020-02-22 18:06 | NUR ---
Patients mitts put back on, patient took off hart stat lock 2 times. Nursing staff replaced and put pants on patient. Alert and confused. VSS. IV CDI, fluids infusing. Patient has complaints of back pain, but pain not as bad as the previous day. Lidocaine patch mid lower back. Patient repositioned for comfort. Call light within reach. Bed alarm on and door left open
--- NOTE | 2020-02-22 20:00 | NUR ---
Assessment complete. Patient is alert but is not oriented; He is pleasantly confused. Heart sounds are normal/regular, lungs clear, and all bowel sounds are audible. No edema is present and patient does not appear to be in pain unless he is rolled on his side. NS is infusing into right forearm IV. Indwelling catheter is draining dark yellow urine. Patient swallows PO meds, some with regular water, and some crushed in applesauce. Bed alarm on and will continue to closely monitor.
[2020-02-22 21:20] VITALS: BP 131/58; PULSE 82; TEMP 97.5
[2020-02-23 01:05] VITALS: BP 122/64; PULSE 74; TEMP 97.8
[2020-02-23 05:27] VITALS: BP 126/62; PULSE 80; TEMP 97.9
[2020-02-23 06:57] LABS: BASO % 0.3 % (0.0-2.0); EOS # 0.1 (0.0-0.7); EOS % 1.3 % (0-4.0); GRAN % 69.3 % (42.2-75.2); HEMATOCRIT 40.7 % (42.0-52.0); HEMOGLOBIN 13.8 g/dl (13.5-18.0); LYMPH # 1.5 (1.2-3.4); LYMPH % 17.3 % (20.0-51.0); MEAN CELL VOLUME 92 fl (80.0-100.0); MEAN CORPUSCULAR HEMOGLOBIN 31 pg (27.0-31.0); MEAN CORPUSCULAR HGB CONC 34 g/dl (33.0-37.0); MEAN PLATELET VOLUME 8.9 fl (7.4-10.4); MONO % 11.3 % (1.7-9.3); PLATELET COUNT 474 K/mm3 (130-400); RED BLOOD COUNT 4.42 M/mm3 (4.20-5.60); REDCELL DISTRIBUTION WIDTH-CV 12.4 % (11.5-14.5)
--- NOTE | 2020-02-23 07:00 | NUR ---
Pt is complaining of back pain with movement. He is still attempting to get out of bed, he has mitts on at this time. Will remove them to allow him to eat, and reassess his need for them. Assessment completed. Bed alarm on, call light at bedside. No further concerns at this time.
[2020-02-23 07:09] LABS: CALCIUM 8.9 mg/dL (8.4-10.2); CREATININE, serum 0.72 (0.66-1.25); POTASSIUM 3.8 mmol/L (3.4-5.0)
[2020-02-23 08:19] VITALS: BP 121/63; PULSE 69; TEMP 97.7
[2020-02-23 11:58] VITALS: BP 126/71; PULSE 106; TEMP 98.1
[2020-02-23 16:00] VITALS: BP 124/64; PULSE 73; TEMP 97.5
--- NOTE | 2020-02-23 16:05 | NUR ---
Obstetrical Anesthesiologist received copy of Temporary Guardianship paperwork from Kristofer Rose. TIP faxed this information to [facility], [facility], and [facility]. TIP contacted Sharlene at [facility] and left a message. TIP spoke with Page at [facility] who requested most recent urine. TIP faxed. TIP also spoke with Giselle at [facility] who requested updated COVID PCR. Giselle reports she has been in contact with patient's Guardian, Kristofer Rose. TIP spoke with EASTON Stroud about ordering COVID PCR and provided update on discharge planning. TIP corresponded with Jeff Carreno, patient's city attorney to set up Zoom meeting for tomorrow at 1030 for Guardianship hearing. SW to provide patient copy of Guardianship doc before Zoom meeting. TIP collaborated with NATHANAEL Healy Scrap Metal Burner who advised tablet will be available tomorrow morning. TIP will continue to follow.
--- NOTE | 2020-02-23 18:34 | NUR ---
Pt used plastic knife to cut his hart catheter tubing. Replaced hart bag.
--- NOTE | 2020-02-23 19:18 | NUR ---
Report given to NATHANAEL Mcdonald.
[2020-02-23 20:30] VITALS: BP 128/66; PULSE 76; TEMP 97.2
[2020-02-24] VITALS (7 sets, daily range): BP systolic 107–143; BP diastolic 64–96; PULSE 64–90; TEMP 97.4–97.7
--- NOTE | 2020-02-24 03:41 | NUR ---
Patient in bed, no impulsive activity. patient continue to manipulate hart catheter with have covered in mittens. Patient resting in bed at this time.
--- NOTE | 2020-02-24 07:26 | NUR ---
REPORT GIVEN TO NATHANAEL RUFFIN
--- NOTE | 2020-02-24 10:05 | NUR ---
Pt awake upon entry, has C/o pain in his lower back. lidocaine patch applied for relief. Shift assessment complete, left Pt call light in reach.
--- NOTE | 2020-02-24 16:22 | NUR ---
Migratory Farm Hand assisted with facilitating a zoom conference between patient and his research attorney, Jeff Carreno. TIP contacted Giselle at [facility] who again confirmed she has been in contact with patient's temporary guardian, Kristofer Rose. Giselle advised they are good to accept once COVID results are back. Giselle advised TIP can call [phone] (RN station) to arrange transfer tomorrow or over weekend. TIP emailed and left voicemail for Kristofer Rose, temporary guardian to provide this update. TIP also received a phone call from Anna Montes (ph#[phone]), patient's daughter inquiring about how patient has been doing. Anna states she has been researching what all it means to be a guardian and doesn't think this is a responsibility she would want. Anna states she has talked with Kristofer Rose research attorney about these things. TIP will continue to follow.
--- NOTE | 2020-02-24 18:27 | NUR ---
Pt resting in the room, increasing confusion and aggression noted this afternoon, no other issues. VS have remained stable
--- NOTE | 2020-02-25 02:33 | NUR ---
Individual no s/s distress noted. Continues with confusion and fall precautions. Pulled Aguilera Cat out. Notified ALP @ 1841, 02/24/2020. Allow ro remain out as long as voiding and bladder scan q6hrs.
[2020-02-25 06:03] VITALS: BP 147/88; PULSE 71; TEMP 97.2
[2020-02-25] MEDS ORDERED: AMOXICILLIN 50500 MG PO (07:08)
[2020-02-25] MEDS ORDERED: FLOMAX 0.40.4 MG/CAP PO (07:08)
[2020-02-25] MEDS ORDERED: ZESTRIL 10MG10 MG PO (07:09)
[2020-02-25] MEDS ORDERED: FOLIC ACID 11 MG/TA1 PO (07:09)
[2020-02-25] MEDS ORDERED: DUO-KAPS1 CAP PO (07:09)
[2020-02-25] MEDS ORDERED: BLUE-EMU LIDOC1 EACH TP (07:09)
[2020-02-25] MEDS ORDERED: THIAMINE 1100 MG/TAB PO (07:09)
[2020-02-25] MEDS ORDERED: SEROQUEL 2525 MG/TAB PO (07:09)
[2020-02-25 08:21] VITALS: BP 132/81; PULSE 76; TEMP 97.7
--- NOTE | 2020-02-25 10:30 | NUR ---
Pt awake upon entry, impulsive, but talkative. Shift assessments complete, left Pt call light in reach, bed in lowest position, alarm on
[2020-02-25 11:43] VITALS: BP 132/81; PULSE 76; TEMP 97.7
--- NOTE | 2020-02-25 13:00 | NUR ---
Pt transferred to Behavior facility, Pt transportated via commercial transportation.
== END 2020-02-25 13:00 | DRG 897 ==
LOC: COL.ER 14:25 → MEDICAL 16:15
PROVIDERS: Emergency Medicine; Internal Medicine; Physician Assistant; ADMIT Hospitalist
DX: F10.259 Alcohol dependence with alcohol-induced psychotic disorder, unspecified (principal); I48.20 Chronic atrial fibrillation, unspecified; F02.81 Dementia in other diseases classified elsewhere, unspecified severity, with behavioral disturbance; N39.0 Urinary tract infection, site not specified; I10 Essential (primary) hypertension; N40.1 Benign prostatic hyperplasia with lower urinary tract symptoms; E87.6 Hypokalemia; M19.011 Primary osteoarthritis, right shoulder; G30.9 Alzheimer's disease, unspecified; E78.5 Hyperlipidemia, unspecified; Z20.828 Contact with and (suspected) exposure to other viral communicable diseases; R33.8 Other retention of urine; Z96.653 Presence of artificial knee joint, bilateral; Z95.0 Presence of cardiac pacemaker; Y90.7 Blood alcohol level of 200-239 mg/100 ml
CPT/HCPCS: 99223-AI; 99231-AI; 99232-AI; 99233-AI; A4314; G0378; J1630; J1650; J2060; J3411; J7030; Q9967